=== PATIENT | female | born 1985 | race African-American/Black ===

== ENCOUNTER 2017-12-09 00:11 | Emergency (ER) | payer SELFPAY ==
[~2017-12-09] VITALS: Ht 149.9 cm; Wt 61.2 kg
== END 2017-12-09 00:26 | disposition left against medical advice (07) ==
LOC: ER 00:11
DX: R31.9 Hematuria, unspecified (principal)

== ENCOUNTER 2017-12-18 06:59 | Emergency (ER) | payer SELFPAY ==
[~2017-12-18] VITALS: Ht 149.9 cm; Wt 61.2 kg
[2017-12-18 08:15] LABS: CLARITY,URINE SL CLOUDY (CLEAR); COLOR,URINE YELLOW (YELLOW); LEUKOCYTE ESTERASE ,URINE NEGATIVE (NEGATIVE)
[2017-12-18 08:16] LABS: BILIRUBIN,URINE NEGATIVE (NEGATIVE); KETONES,URINE 1+ (NEGATIVE); NITRITE,URINE NEGATIVE (NEGATIVE); PREGNANCY TEST, URINE NEGATIVE (NEGATIVE); PROTEIN,URINE DIPSTICK TRACE (NEGATIVE); URINE UROBILINOGEN 0.2 mg/dL (0.2 - 1)
[2017-12-18 08:25] LABS: BACTERIA,URINE FEW /HPF; EPITHELIAL CELLS,URINE MODERATE /LPF; RBC,URINE 0-5 /HPF (0-5)
[2017-12-18 09:19] LABS: BASOPHILS % 0.4 % (0.0-1.0); EOSINOPHILS # (AUTO) 0.1 (0.0-0.4); EOSINOPHILS % 1.4 % (0.0-6.0); HEMATOCRIT 40.3 % (34.2-44.1); HEMOGLOBIN 13.7 g/dL (12.0-16.0); LYMPHOCYTES # (AUTO) 2.4 (1.0-3.2); MEAN CORPUSCULAR HEMOGLOBIN 31.9 pg (28-32); MEAN CORPUSCULAR VOLUME 93.7 fL (81-99); MONOCYTES # (AUTO) 0.4 (0.2-0.8); MONOCYTES % 7.8 % (4.4-11.3); NEUTROPHILS # (AUTO) 2.7 (2.1-6.9); PLATELET COUNT 252 x10e3/uL (140-360); RED CELL DISTRIBUTION WIDTH 13.5 % (11.7-14.4)
[2017-12-18 09:33] LABS: ALANINE AMINOTRANSFERASE 7 IU/L (0-55); ALBUMIN 4.1 g/dL (3.5-5.0); ALBUMIN/GLOBULIN RATIO 1.1 (0.8-2.0); ALKALINE PHOSPHATASE 62 IU/L (40-150); ANION GAP 12.8 mmol/L (8-16); BLOOD UREA NITROGEN 10 mg/dL (7-26); BUN/CREATININE RATIO 15 (6-25); CALCIUM 9.1 mg/dL (8.4-10.2); CARBON DIOXIDE 23 mmol/L (22-29); CHLORIDE 109 mmol/L (98-107); CREATININE, SERUM 0.66 mg/dL (0.57-1.11); EST GLOMERULAR FILTRATION RATE > 60 ML/MIN (60-); GLUCOSE 89 mg/dL (74-118); POTASSIUM 3.8 mmol/L (3.5-5.1); SODIUM 141 mmol/L (136-145)
[2017-12-18] MEDS: LORAZEPAM INJ 2 MG/ML VIAL IV ONE (10:48)
[2017-12-18] MEDS: KETOROLAC TROMETHAMINE 30 MG/ML VIAL IV STA (11:21)
--- NOTE | 2017-12-18 11:21 | Diagnostic Imaging Report ---
PROCEDURE: CT ABDOMEN AND PELVIS WITH CONTRAST TECHNIQUE: The abdomen and pelvis were scanned utilizing a multidetector helical scanner from the diaphragm to the lesser trochanter after the IV administration of 100 cc of Isovue 370 and the oral administration of water. Coronal and sagittal multiplanar reformations were obtained. COMPARISON: None. INDICATIONS: ABDOMEN PAIN FINDINGS: LOWER THORAX: Normal. HEPATOBILIARY: No focal hepatic lesion or intrahepatic biliary ductal dilatation. The gallbladder is unremarkable. SPLEEN: No splenomegaly. PANCREAS: No focal masses or ductal dilatation. ADRENALS: No adrenal nodules. KIDNEYS/URETERS: Nonobstructing calculi in the interpolar and lower pole of the right kidney measuring up to 6 mm. No left renal calculi. No hydronephrosis or bladder calculi. PELVIC ORGANS/BLADDER: Urinary bladder is unremarkable. Uterus is anteflexed and appears normal. Right ovarian corpus luteum. No adnexal mass. PERITONEUM / RETROPERITONEUM: Trace free pelvic fluid, average internal attenuation 15-20 Hounsfield units, likely physiologic. No pneumoperitoneum. LYMPH NODES: No pelvic sidewall, retroperitoneal, or mesenteric lymphadenopathy. VESSELS: The abdominal aorta, major branch vessels, and iliac arterial systems are well-visualized and patent. The portal vein and splenic vein are patent. GI TRACT: The large bowel shows no distention or wall thickening. The appendix is normal. There is no small bowel dilatation to suggest obstruction. BONES AND SOFT TISSUES: 3.4 cm simple cyst in the left mons pubis subcutaneous region. No additional focal soft tissue abnormalities. No osseous destructive lesions. IMPRESSION: No acute intra-abdominal or pelvic CT abnormalities. Nonobstructing right interpolar and lower pole renal calculi. Simple cyst in the subcutaneous fat of the left mons pubis. Right ovarian corpus luteum with trace physiologic free pelvic fluid. Dictated by: David Ayala M.D. on 12/18/2017 at 11:24 Electronically approved by: David Ayala M.D. on 12/18/2017 at 11:24
[2017-12-18] MEDS: CEFTRIAXONE SOD 1 GM VIAL IV SCH (11:23)
[2017-12-18] MEDS ORDERED: IOPAMIDOL 370 MG/ML 200 ML INFUS..BTL INJ ONE (12:44)
[2017-12-18] MEDS ORDERED: SODIUM CHLORIDE 0.9% 50ML 50 ML ONE (12:44)
== END 2017-12-18 13:29 | disposition home or self-care (01) ==
LOC: ER 06:59
DX: R10.31 Right lower quadrant pain (principal); N30.90 Cystitis, unspecified without hematuria; N83.201 Unspecified ovarian cyst, right side
CPT/HCPCS: 36415; 74177; 80053; 81001; 81025; 85025; 99284; J0696; J1885; J2060; Q9967